=== PATIENT | female | born 1950 | race Caucasian/White ===

== ENCOUNTER → 2019-09-15 | Outpatient (CLI) | payer MEDICARE ==
[~2019-09-15] MED LIST: REGADENOSON 0.4 MG/5 ML PF SYG IVP SCH
== END | disposition home or self-care (01) ==
LOC: SHCH 07:44
PROVIDERS: ATTEND Internal Medicine Cardiovascular Disease
DX: I25.10 Atherosclerotic heart disease of native coronary artery without angina pectoris (principal)
CPT/HCPCS: 78452; 93017; 96374; A9500 ×2; J2785

== ENCOUNTER → 2023-08-12 | Outpatient (CLI) | payer OTHER | END | disposition home or self-care (01) | LOC: OIH 15:45 | PROVIDERS: ATTEND Internal Medicine Cardiovascular Disease | DX: Z13.6 Encounter for screening for cardiovascular disorders (principal) | CPT/HCPCS: 75571 ==

== ENCOUNTER → 2024-04-30 | Outpatient (CLI) | payer MEDICARE, OTHER ==
--- NOTE | 2024-04-30 10:10 | HMCIMG ---
US ABDOMINAL COMPLETE REASON: OTHER SPECIFIED DISEASE OF LIVER COMPARISON: None FINDINGS: There is normal sonographic appearance of the liver. There is a 1.8 cm cyst left lobe of the liver. There are no solid liver lesions. The liver is not enlarged.There is a normal-appearing gallbladder. Right kidney is 13.4 x 5.4 x 5.6 cm, left 12.3 x 5.8 x 4.9 cm. Cortex is mildly echogenic consistent with chronic renal disease, cortical thickness appears preserved. There is no mass, stone or hydronephrosis. There are multiple bilateral renal cysts, largest on the right is 5 cm, largest on the left is 7.5 cm. Spleen and common duct appear normal. Aorta and inferior vena cava appear normal. There is a 9 mm cyst in the body of the pancreas. Pancreas appears otherwise unremarkable. IMPRESSION: 1. Bilateral renal cysts, kidneys are mildly echogenic consistent with chronic renal disease, overall size and cortical thickness appear preserved. 2. 1.8 cm cyst in the liver, there is also a 9 mm cyst in the body of the pancreas 3. Otherwise unremarkable abdomen sonogram, no focal liver masses identified.
== END | disposition home or self-care (01) ==
LOC: RAH 08:42
PROVIDERS: ATTEND Internal Medicine Cardiovascular Disease
DX: N28.1 Cyst of kidney, acquired (principal); K76.89 Other specified diseases of liver; K86.2 Cyst of pancreas
CPT/HCPCS: 76700